=== PATIENT | male | born 1980 | race American Indian/Alaskan Native ===

== ENCOUNTER 2018-09-26 23:54 | Emergency (ER) | payer MEDICAID ==
[~2018-09-26] VITALS: Ht 185.4 cm; Wt 88.0 kg
[~2018-09-26 23:54] MED LIST: IRON150C5 PO; SENN-93 PO
[2018-09-27] MEDS ORDERED: HYDROcodone/acetaminophen 10/325mg tab PO ONE (01:00)
[2018-09-27] MEDS ORDERED: acetaminophen 325mg tablet PO ONE (01:00)
[2018-09-27] MEDS ORDERED: HYDR-3965 PO (01:02)
[2018-09-27 01:24] VITALS: BP 131/82
== END 2018-09-27 01:25 | disposition home or self-care (01) ==
LOC: ER 23:55
DX: G89.18 Other acute postprocedural pain (principal); M79.604 Pain in right leg; F12.90 Cannabis use, unspecified, uncomplicated; Z79.899 Other long term (current) drug therapy
CPT/HCPCS: 99284

== ENCOUNTER 2022-10-04 16:06 | Emergency (ER) | payer MEDICAID ==
[~2022-10-04] VITALS: Ht 188 cm; Wt 90.9 kg
[2022-10-04 16:32] VITALS: BP 111/72
[2022-10-04 17:25] LABS: CLARITY,URINE CLEAR (Clear); COLOR,URINE YELLOW (Yellow); GLUCOSE, URINE NEGATIVE (Neg); KETONES,URINE NEGATIVE (Neg); LEUKOCYTE ESTERASE ,URINE NEGATIVE (Neg); NITRITES, URINE NEGATIVE (Neg); OCCULT BLOOD,URINE NEGATIVE (Neg); PROTEIN,URINE NEGATIVE (Neg); UROBILINOGEN,URINE 0.2 E.U/dL (0.2-1.0)
[2022-10-04 17:29] LABS: UA COLLECTION TYPE URINAL; URINE AMPHETAMINE SCREEN NEGATIVE (Neg); URINE BARBITUATE SCREEN NEGATIVE (Neg); URINE BENZODIAZEPINES SCREEN NEGATIVE (Neg); URINE CANNABINOID SCREEN POSITIVE (Neg); URINE COCAINE SCREEN NEGATIVE (Neg); URINE METHADONE SCREEN NEGATIVE (Neg); URINE OPIATE SCREEN NEGATIVE (Neg); URINE PHENCYCLIDINE SCREEN NEGATIVE (Neg)
== END 2022-10-04 19:28 | disposition left against medical advice (07) ==
LOC: ER 16:07
DX: M54.9 Dorsalgia, unspecified (principal); Z53.21 Procedure and treatment not carried out due to patient leaving prior to being seen by health care provider
CPT/HCPCS: 80305; 81003; 99281

== ENCOUNTER 2023-06-18 03:55 | Inpatient (IN) | payer MEDICAID ==
[~2023-06-18] VITALS: Ht 190.5 cm; Wt 90.0 kg
[2023-06-18] MEDS ORDERED: ceFAZolin/D5W- 1GM premix 50 ML IV ONE (04:05)
[2023-06-18] MEDS ORDERED: normal saline 1000ml 1,000 ML IV ONE (04:05)
[2023-06-18 04:48] LABS: MONOCYTES # (AUTO) 0.6 X10'3 (0-0.9); MONOCYTES % (AUTO) 5.5 % (2-12)
[2023-06-18 04:49] LABS: BASOPHILS # (AUTO) 0.1 X10'3 (0-0.2); BASOPHILS % (AUTO) 0.9 % (0-1); EOSINOPHILS # (AUTO) 0.1 X10'3 (0-0.9); EOSINOPHILS % (AUTO) 0.8 % (0-6); HEMATOCRIT 49.5 % (42.0-52.0); LYMPHOCYTES # (AUTO) 1.3 X10'3 (1.1-4.8); LYMPHOCYTES % (AUTO) 12.4 % (21-51); MEAN CORPUSCULAR HEMOGLOBIN 31.8 PG (27.0-31.0); MEAN CORPUSCULAR HGB CONC 34.3 g/dL (33.0-36.5); MEAN CORPUSCULAR VOLUME 92.8 FL (78-98); MEAN PLATELET VOLUME 6.5 FL (7.4-10.4); NEUTROPHILS # (AUTO) 8.5 X10'3 (1.8-7.7); NEUTROPHILS % (AUTO) 80.4 % (42-75); PLATELET COUNT 411 X10'3 (140-440); RED BLOOD COUNT 5.33 X10'6 (4.70-6.10); RED CELL DISTRIBUTION WIDTH 13.4 % (11.5-14.5); WHITE BLOOD COUNT 10.6 X10'3 (4.5-11.0)
[2023-06-18 04:57] LABS: APTT 23 SECONDS (22-32)
[2023-06-18 05:03] LABS: INR 0.9 INR
[2023-06-18] MEDS ORDERED: propofol 10mg/ml 20ml vial IV ONE (05:25)
[2023-06-18] MEDS ORDERED: fentaNYL/PF 50MCG/1 ML 2ML syringe ONE (05:45)
[2023-06-18] MEDS ORDERED: fentaNYL/PF 50MCG/1 ML 2ML syringe IV STA (05:45)
[2023-06-18 06:47] LABS: ALBUMIN 3.6 G/DL (3.4-5.0); ANION GAP 10 (8-16); BLOOD UREA NITROGEN 11 MG/DL (7-18); CALCIUM 8.2 MG/DL (8.5-10.1); CHLORIDE 106 MMOL/L (99-107); ETHANOL < 10 MG/DL (<10); GLUCOSE 110 MG/DL (70-104); POTASSIUM 3.6 MMOL/L (3.5-5.1); SODIUM 141 MMOL/L (135-145); TOTAL CARBON DIOXIDE 25.1 MMOL/L (24-32); eCRCL 113 ML/MIN; eGFR 82 ML/MIN
[2023-06-18] MEDS ORDERED: magnesium hydroxide 30ml (MOM) UD suspension PO PRN (07:30)
[2023-06-18] MEDS ORDERED: acetaminophen 325mg tablet PO PRN ×2 (07:30)
[2023-06-18] MEDS ORDERED: potassium Cl 20 mEq SR tablet PO PRN ×2 (07:30)
[2023-06-18] MEDS ORDERED: morphine 2 MG/ML inj. syringe IV PRN ×2 (07:30→23:10)
[2023-06-18] MEDS ORDERED: HYDROcodone/acetaminophen 5mg/325mg tablet PO PRN (07:30)
[2023-06-18] MEDS ORDERED: magnesium 4gm in 100ml NS 100 ML IV PRN (07:30)
[2023-06-18] MEDS ORDERED: mag hydrox/Alum hydrox/simeth 30ml oral suspension PO PRN (07:30)
[2023-06-18] MEDS ORDERED: acetaminophen 650mg rectal suppository RC PRN (07:30)
[2023-06-18] MEDS ORDERED: magnesium Cl slow-release 64mg tablet PO PRN (07:30)
[2023-06-18] MEDS ORDERED: potassium Cl 40MEQ/1/2NS 520ml 520 ML IV PRN (07:30)
[2023-06-18] MEDS ORDERED: magnesium 2GM in 50ml NS 50 ML IV PRN (07:30)
[2023-06-18] MEDS ORDERED: ondansetron/PF 4mg/2ml inj IV PRN ×2 (07:30→23:10)
[2023-06-18] MEDS ORDERED: ondansetron 4mg rapidly disintigrating tab PO PRN (07:30)
[2023-06-18] MEDS: normal saline 1000ml 1,000 ML IV SCH ×2 (07:52→17:40)
[2023-06-18] MEDS: K and/or MAG REPLACEMENT MC SCH ×2 (07:54→19:12)
[2023-06-18] MEDS: morphine 2 MG/ML inj. syringe IV PRN ×4 (09:05→21:20)
[2023-06-18 12:15] LABS: BILIRUBIN,URINE NEGATIVE (Neg); CLARITY,URINE CLEAR (Clear); COLOR,URINE STRAW (Yellow); GLUCOSE, URINE NEGATIVE (Neg); KETONES,URINE NEGATIVE (Neg); LEUKOCYTE ESTERASE ,URINE NEGATIVE (Neg); NITRITES, URINE NEGATIVE (Neg); OCCULT BLOOD,URINE TRACE-INTACT (Neg); PROTEIN,URINE NEGATIVE (Neg); UROBILINOGEN,URINE 0.2 E.U/dL (0.2-1.0)
[2023-06-18 12:32] LABS: UA COLLECTION TYPE VOIDED
[2023-06-18 12:37] LABS: MUCUS STRANDS FEW /LPF (Neg); SQUAMOUS EPITHELIAL CELL,UR FEW /LPF (FEW)
[2023-06-18 12:38] LABS: BACTERIA,URINE NONE SEEN /HPF (Neg); WBC,URINE 0-4 /HPF (0-4)
[2023-06-18] MEDS ORDERED: nicotine 21mg patch - 24 hr TD ONE (18:05)
[2023-06-18 21:00] VITALS: BP 134/68; PULSE 71; RESP 16; TEMP 98.3
[2023-06-18] MEDS: HYDROcodone/acetaminophen 10/325mg tab PO PRN (21:21)
[2023-06-18] MEDS ORDERED: ringers solution, lacted 1,000 ML IV SCH (23:10)
[2023-06-18] MEDS ORDERED: enalaprilat dihydrate 2.5mg/2ml vial IV PRN (23:10)
[2023-06-18] MEDS ORDERED: proCHLORperazine 10 MG/2 ml inj IV PRN (23:10)
[2023-06-18] MEDS ORDERED: labetalol 20mg/4ml (5mg/ml) syringe IV PRN (23:10)
[2023-06-18] MEDS ORDERED: meperidine/PF 25mg/ml syringe IV PRN ×3 (23:10)
[2023-06-18] MEDS ORDERED: morphine 4 MG/ML inj SYRINge IV PRN (23:10)
[2023-06-18] MEDS ORDERED: CEFAZOLIN 2 GM injection IV ONE (23:20)
[2023-06-18] MEDS ORDERED: cefazolin 2gm/D5W 100mL 100 ML IV ONE (23:40)
[2023-06-18] MEDS ORDERED: midazolam 1 mg/ML 2ml injection ONE (23:43)
[2023-06-18] MEDS ORDERED: propofol inj 20 ML IV ONE (23:44)
[2023-06-18] MEDS ORDERED: ROPIVAcaine 0.5% (5mg/ml) 30ml vial ONE (23:44)
[2023-06-18] MEDS ORDERED: fentaNYL /PF 50mcg/ml 5ml ampule ONE (23:44)
[2023-06-18] MEDS ORDERED: dexamethasone sod phosphate 10mg/ml inj ONE (23:45)
[2023-06-18] MEDS ORDERED: ondansetron/PF 4mg/2ml inj ONE (23:45)
[2023-06-18] MEDS ORDERED: sevoflurane 250ml liquid IH ONE (23:45)
[2023-06-18] MEDS ORDERED: LIDOcaine 2% (20mg/ml) 5ml vial ONE (23:45)
[2023-06-19] VITALS (14 sets, daily range): BP systolic 103–129; BP diastolic 60–81; PULSE 69–92; RESP 0–18; TEMP 97–98.8; O2SAT 95–100
[2023-06-19 06:43] LABS: ALANINE AMINOTRANSFERASE 40 U/L (12-78); ALBUMIN 3.1 G/DL (3.4-5.0); ALBUMIN/GLOBULIN RATIO 0.9 (1.1-1.5); ALKALINE PHOSPHATASE 83 IU/L (46-116); ANION GAP 7 (8-16); ASPARTATE AMINO TRANSFERASE 30 U/L (10-37); BILIRUBIN,TOTAL 0.8 MG/DL (0.1-1.0); BLOOD UREA NITROGEN 14 MG/DL (7-18); BUN/CREATININE RATIO 13.1 (10.0-20.0); CALCIUM 8.4 MG/DL (8.5-10.1); CHLORIDE 105 MMOL/L (99-107); CREATININE 1.07 MG/DL (0.60-1.10); GLUCOSE 135 MG/DL (70-104); MAGNESIUM 2.4 MG/DL (1.5-2.4); PHOSPHORUS 2.5 MG/DL (2.3-4.5); POTASSIUM 4.2 MMOL/L (3.5-5.1); SODIUM 136 MMOL/L (135-145); TOTAL PROTEIN 6.7 G/DL (6.4-8.2); eCRCL 109 ML/MIN; eGFR 76 ML/MIN
[2023-06-19] MEDS: K and/or MAG REPLACEMENT MC SCH ×2 (08:00→19:00)
[2023-06-19 08:35] LABS: BASOPHILS % (AUTO) 0.2 % (0-1); EOSINOPHILS % (AUTO) 0.1 % (0-6); HEMATOCRIT 47.1 % (42.0-52.0); HEMOGLOBIN 15.9 g/dl (14.0-17.9); LYMPHOCYTES # (AUTO) 0.4 X10'3 (1.1-4.8); LYMPHOCYTES % (AUTO) 4.2 % (21-51); MEAN CORPUSCULAR HEMOGLOBIN 31.8 PG (27.0-31.0); MEAN CORPUSCULAR HGB CONC 33.8 g/dL (33.0-36.5); MEAN CORPUSCULAR VOLUME 94.1 FL (78-98); MONOCYTES # (AUTO) 0.2 X10'3 (0-0.9); MONOCYTES % (AUTO) 1.6 % (2-12); NEUTROPHILS # (AUTO) 8.9 X10'3 (1.8-7.7); NEUTROPHILS % (AUTO) 93.9 % (42-75); PLATELET COUNT 387 X10'3 (140-440); RED CELL DISTRIBUTION WIDTH 13.5 % (11.5-14.5); WHITE BLOOD COUNT 9.5 X10'3 (4.5-11.0)
[2023-06-19] MEDS: cefazolin 2gm/D5W 100mL 100 ML IV SCH ×3 (09:04→23:32)
[2023-06-19] MEDS: aspirin 325mg tablet, delayed-release (Ecotrin) PO SCH (09:11)
[2023-06-19] MEDS: normal saline 1000ml 1,000 ML IV SCH ×3 (09:12→22:07)
[2023-06-19] MEDS: HYDROcodone/acetaminophen 10/325mg tab PO PRN ×3 (09:12→22:07)
[2023-06-19] MEDS ORDERED: nicotine 21mg patch - 24 hr TD SCH (20:00)
[2023-06-20] MEDS: morphine 2 MG/ML inj. syringe IV PRN ×3 (01:11→10:13)
[2023-06-20] MEDS: normal saline 1000ml 1,000 ML IV SCH ×2 (01:12→10:15)
[2023-06-20 02:00] VITALS: BP 149/97; PULSE 69; RESP 18; TEMP 97.7; O2SAT 100
[2023-06-20] MEDS: HYDROcodone/acetaminophen 10/325mg tab PO PRN ×3 (02:15→12:03)
[2023-06-20 06:00] VITALS: BP 135/84; PULSE 75; RESP 16; TEMP 98; O2SAT 99
[2023-06-20] MEDS: aspirin 325mg tablet, delayed-release (Ecotrin) PO SCH (07:37)
[2023-06-20 07:54] LABS: BASOPHILS # (AUTO) 0.1 X10'3 (0-0.2); BASOPHILS % (AUTO) 0.7 % (0-1); EOSINOPHILS # (AUTO) 0.1 X10'3 (0-0.9); EOSINOPHILS % (AUTO) 0.7 % (0-6); HEMOGLOBIN 14.6 g/dl (14.0-17.9); LYMPHOCYTES # (AUTO) 2.3 X10'3 (1.1-4.8); LYMPHOCYTES % (AUTO) 22.4 % (21-51); MEAN CORPUSCULAR HEMOGLOBIN 31.8 PG (27.0-31.0); MEAN CORPUSCULAR HGB CONC 33.9 g/dL (33.0-36.5); MEAN CORPUSCULAR VOLUME 93.7 FL (78-98); MEAN PLATELET VOLUME 6.6 FL (7.4-10.4); MONOCYTES # (AUTO) 0.9 X10'3 (0-0.9); NEUTROPHILS # (AUTO) 6.8 X10'3 (1.8-7.7); NEUTROPHILS % (AUTO) 67.2 % (42-75); PLATELET COUNT 323 X10'3 (140-440); RED BLOOD COUNT 4.59 X10'6 (4.70-6.10); RED CELL DISTRIBUTION WIDTH 13.6 % (11.5-14.5); WHITE BLOOD COUNT 10.1 X10'3 (4.5-11.0)
[2023-06-20] MEDS: K and/or MAG REPLACEMENT MC SCH (08:00)
[2023-06-20 08:14] LABS: ALANINE AMINOTRANSFERASE 28 U/L (12-78); ALBUMIN 2.7 G/DL (3.4-5.0); ALBUMIN/GLOBULIN RATIO 0.8 (1.1-1.5); ALKALINE PHOSPHATASE 72 IU/L (46-116); ANION GAP 7 (8-16); ASPARTATE AMINO TRANSFERASE 27 U/L (10-37); BILIRUBIN,TOTAL 0.4 MG/DL (0.1-1.0); BLOOD UREA NITROGEN 13 MG/DL (7-18); BUN/CREATININE RATIO 15.3 (10.0-20.0); CHLORIDE 104 MMOL/L (99-107); CREATININE 0.85 MG/DL (0.60-1.10); GLUCOSE 126 MG/DL (70-104); MAGNESIUM 2.2 MG/DL (1.5-2.4); PHOSPHORUS 1.8 MG/DL (2.3-4.5); POTASSIUM 3.6 MMOL/L (3.5-5.1); SODIUM 137 MMOL/L (135-145); TOTAL CARBON DIOXIDE 26.1 MMOL/L (24-32); TOTAL PROTEIN 6.2 G/DL (6.4-8.2); eCRCL 137 ML/MIN; eGFR > 90 ML/MIN
[2023-06-20 10:00] VITALS: BP 143/89; PULSE 78; RESP 16; TEMP 97.8; O2SAT 98
[2023-06-20] MEDS ORDERED: ACET-1008 PO (11:59)
[2023-06-20] MEDS ORDERED: ASPI-1265 PO ×2 (11:59)
[2023-06-20] MEDS ORDERED: OMEP20CA15 PO (11:59)
[2023-06-20] MEDS ORDERED: HYDR-3965 PO (12:00)
[2023-06-20] MEDS ORDERED: ASPI-10 PO (12:12)
[2023-06-20 13:03] VITALS: RESP 16
[2023-06-20 15:14] LABS: HBSAG SCREEN Negative (Negative); HEP A AB, IGM Negative (Negative); HEP B CORE AB, IGM Negative (Negative)
[2023-06-23 17:32] LABS: HEPATITIS C VIRUS ANTIBODY Reactive (Non Reactive)
== END 2023-06-20 14:25 | disposition home or self-care (01) | DRG 313 ==
LOC: ER 03:55 → ED HOLD 07:33 → PCU 3S 20:54
PROVIDERS: ADMIT Family Medicine; ATTEND Family Medicine
PROC: 0SSGXZZ Reposition Left Ankle Joint, External Approach (ICD-10-PCS; 2023-06-18)
PROC: 3E0T3BZ Introduction of Anesthetic Agent into Peripheral Nerves and Plexi, Percutaneous Approach (ICD-10-PCS; 2023-06-18)
PROC: 3E0T33Z Introduction of Anti-inflammatory into Peripheral Nerves and Plexi, Percutaneous Approach (ICD-10-PCS; 2023-06-18)
PROC: 0QSK04Z Reposition Left Fibula with Internal Fixation Device, Open Approach (ICD-10-PCS; principal; 2023-06-19)
PROC: 0QSH04Z Reposition Left Tibia with Internal Fixation Device, Open Approach (ICD-10-PCS; 2023-06-19)
DX: S82.852C Displaced trimalleolar fracture of left lower leg, initial encounter for open fracture type IIIA, IIIB, or IIIC (principal); F17.210 Nicotine dependence, cigarettes, uncomplicated; W13.4XXA Fall from, out of or through window, initial encounter; Y93.89 Activity, other specified; Y92.89 Other specified places as the place of occurrence of the external cause; Y99.8 Other external cause status; Z86.19 Personal history of other infectious and parasitic diseases; Z71.6 Tobacco abuse counseling
CPT/HCPCS: 36415; 73560; 73600; 76000; 80048; 80053; 80074; 80320; 81001; 83735; 84100; 85025; 85610; 85730; 86885; 86900; 86901; 87081; 94760; 97116; 97161; 97530; 99285; A4618; A4620; A6222; A6449; A7000; C1713; G0378; J0690; J1100; J2250; J2270; J2405; J2704; J2795; J3010; J3490; J7030; J7120